=== PATIENT | female | born 1950 | race Hispanic/Latino ===

== ENCOUNTER → 2017-06-07 | Day surgery (SDC) | payer MEDICARE ==
[~2017-06-07] MED LIST: ATENOLOL-CHLOR1 EACH PO; ATORVASTATIN CA20 MG PO; FENTANYL CITRATE/PF 100MCG/2 ML INJ ONE; LISINOPRIL10 MG PO; MIDAZOLAM HCL 2 MG/2 ML VIAL ONE
== END | disposition home or self-care (01) ==
LOC: OR 09:16
PROVIDERS: ATTEND Ophthalmology
DX: H25.11 Age-related nuclear cataract, right eye (principal); I10 Essential (primary) hypertension
CPT/HCPCS: 66984; J2250

== ENCOUNTER → 2017-06-21 | Day surgery (SDC) | payer MEDICARE ==
[~2017-06-21] MED LIST changes: +OR PHACO EYE KIT ONE; +PREOP PHACO EYE KIT ONE
== END | disposition home or self-care (01) ==
LOC: OR 12:37
PROVIDERS: ATTEND Ophthalmology
DX: H25.12 Age-related nuclear cataract, left eye (principal); I10 Essential (primary) hypertension; E78.5 Hyperlipidemia, unspecified; Z68.30 Body mass index [BMI] 30.0-30.9, adult
CPT/HCPCS: 66984; J2250